=== PATIENT | female | born 1980 | race Caucasian/White ===

== ENCOUNTER 2017-06-16 18:06 | Emergency (ER) | payer OTHER ==
[~2017-06-16] VITALS: Ht 170.2 cm; Wt 90.7 kg
[~2017-06-16 18:06] MED LIST: FLOMAX0.4 MG PO; HYDROCODONE-AP1 EAC6 PO; LEVAQUIN 750 M750 MG PO; MACROBID 100 M100 MG; NORCO 5-325 TA1 EACH PO; PHENERGAN 25 MG25 MG PO; ZOFRAN ODT4 MG SUBLING
[2017-06-16 18:29] LABS: ABSOLUTE LYMPHOCYTES 1.8 thou/uL (0.8-5.3); ABSOLUTE MONOCYTES 0.5 thou/uL (0.0-1.2); ABSOLUTE NEUTROPHILS 5.1 thou/uL (1.6-8.1); BASOPHILS 0.3 %; EOSINOPHILS 0.6 %; HEMATOCRIT 43.9 % (37.0-47.0); HEMOGLOBIN 14.6 gm/dL (12.0-15.0); MCH 27.6 pg (26.0-34.0); MCHC 33.3 g/dL (28.0-37.0); MCV 82.9 fL (80.0-100.0); MPV 9.4 fl. (7.2-11.1); NUCLEATED RBCS 0 /100WBC; PLATELET COUNT* 217 thou/uL (150-400); POLYS 68.1 %; RBC 5.29 mil/uL (4.20-5.00); RDW-CV 13.4 % (10.5-14.5); WBC 7.5 thou/uL (4.0-11.0)
[2017-06-16 18:42] LABS: ANION GAP 8 mmol/L (7-16); BUN 8 mg/dL (7-18); CALCIUM 8.9 mg/dL (8.5-10.1); CHLORIDE 104 mmol/L (98-107); CO2 29 mmol/L (21-32); CREATININE 0.8 mg/dL (0.6-1.3); GLUCOSE 120 mg/dL (70-99); POTASSIUM 4.2 mmol/L (3.5-5.1); SODIUM 141 mmol/L (136-145)
[2017-06-16 18:43] LABS: APTT 29.9 Seconds (25.0-31.3); INR 1.1; PROTIME 10.5 Seconds (9.20-11.50)
[2017-06-16 19:02] LABS: ALBUMIN 3.8 g/dL (3.4-5.0); ALKALINE PHOSPHATASE 62 U/L (46-116); CK-MB MASS < 0.5 ng/mL (<0.5-3.6); LIPASE 123 U/L (73-393); MAGNESIUM 1.7 mg/dL (1.8-2.4); NT-PRO BRAIN NAT PEPTIDE 87 pg/mL (<300); SGOT 16 U/L (15-37); SGPT 22 U/L (30-65); TOTAL BILIRUBIN 0.4 mg/dL (<0.1-1.0); TROPONIN-I LEVEL <0.06 ng/mL (<0.06)
[2017-06-16] MEDS ORDERED: HYDROCODON-ACE1 EAC7 PO (19:08)
[2017-06-16] MEDS ORDERED: LIDODERM1 EACH TRANSDERM (19:08)
[2017-06-16 19:30] VITALS: BP 107/77
--- NOTE | 2017-06-17 12:21 | EKG ---
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
== END 2017-06-16 19:32 | disposition home or self-care (01) ==
LOC: M.ERS 18:06
PROVIDERS: Emergency Medicine
DX: R07.9 Chest pain, unspecified (principal)